=== PATIENT | female | born 1990 | race Caucasian/White ===

== ENCOUNTER 2021-02-08 14:03 | Emergency (ER) | payer OTHER ==
[~2021-02-08] VITALS: Ht 162.6 cm; Wt 90.7 kg
[~2021-02-08 14:03] MED LIST: BACTRIM DS TAB1 EACH PO; CENTANY30 GM TRANSDERM; NEXPLANON68 MG SUBQ; PEPCID20 MG PO; ZOFRAN ODT4 MG PO
[2021-02-08 15:53] VITALS: BP 141/88
== END 2021-02-08 15:54 | disposition home or self-care (01) ==
LOC: M.ERS 14:03
DX: S61.012A Laceration without foreign body of left thumb without damage to nail, initial encounter (principal); A56.8 Sexually transmitted chlamydial infection of other sites; A54.9 Gonococcal infection, unspecified; Z98.890 Other specified postprocedural states; Z79.899 Other long term (current) drug therapy; Z20.2 Contact with and (suspected) exposure to infections with a predominantly sexual mode of transmission; W20.0XXA Struck by falling object in cave-in, initial encounter; Y93.89 Activity, other specified; Y92.89 Other specified places as the place of occurrence of the external cause; Y99.8 Other external cause status